=== PATIENT | female | born 1980 | race American Indian/Alaskan Native ===

== ENCOUNTER 2016-07-12 10:31 | Emergency (ER) | payer MEDICAID ==
--- NOTE | 2016-07-12 12:39 | Emergency Department Report ---
ED ENT HPI - General Chief complaint: Sore Throat Stated complaint: SWOLLEN THROAT Time Seen by Provider: 07/12/16 12:24 Source: patient Mode of arrival: Ambulatory Limitations: No Limitations - History of Present Illness MD complaint: sore throat Location: throat Severity: moderate Quality: burning, aching Worsens with: swallowing Associated Symptoms: fever, sore throat - Related Data Previous Rx's Medication Instructions Recorded Last Taken Type Azithromycin [Zithromax] 250 mg PO QDAY #6 tablet 07/12/16 Unknown Rx Prochlorperazine [Compazine] 10 mg PO ONCE #20 tablet 07/12/16 Unknown Rx Allergies Allergy/AdvReac Type Severity Reaction Status Date / Time Latex, Natural Rubber Allergy Hives Verified 07/12/16 10:49 Penicillins Allergy Hives Verified 07/12/16 10:49 ED Dental HPI - General Chief complaint: Sore Throat Stated complaint: SWOLLEN THROAT Time Seen by Provider: 07/12/16 12:24 Source: patient Mode of arrival: Ambulatory Limitations: No Limitations - History of Present Illness MD complaint: sore throat -: Gradual Severity: moderate Worsens with: swallowing - Related Data Previous Rx's Medication Instructions Recorded Last Taken Type Azithromycin [Zithromax] 250 mg PO QDAY #6 tablet 07/12/16 Unknown Rx Prochlorperazine [Compazine] 10 mg PO ONCE #20 tablet 07/12/16 Unknown Rx Allergies Allergy/AdvReac Type Severity Reaction Status Date / Time Latex, Natural Rubber Allergy Hives Verified 07/12/16 10:49 Penicillins Allergy Hives Verified 07/12/16 10:49 ED Review of Systems ROS: Stated complaint: SWOLLEN THROAT Other details as noted in HPI Constitutional: denies: chills, fever Eyes: denies: eye pain, eye discharge, vision change ENT: denies: ear pain, throat pain Respiratory: denies: cough, shortness of breath, wheezing Gastrointestinal: nausea. denies: abdominal pain, vomiting Musculoskeletal: myalgia Skin: denies: rash, lesions Neurological: headache ED Past Medical Hx - Past Medical History Previous Medical History?: No - Surgical History Additional Surgical History: Appendix, scar tissure - Social History Smoking Status: Never Smoker Substance Use Type: None - Medications Home Medications: Home Medications Medication Instructions Recorded Confirmed Last Taken Type Azithromycin [Zithromax] 250 mg PO QDAY #6 tablet 07/12/16 Unknown Rx Prochlorperazine [Compazine] 10 mg PO ONCE #20 tablet 07/12/16 Unknown Rx ED Physical Exam - General Limitations: No Limitations General appearance: alert, in no apparent distress - Head Head exam: Present: atraumatic, normocephalic - Eye Eye exam: Present: normal appearance - ENT ENT exam: Present: other (bilateral exudative tonsillitis) - Neck Neck exam: Present: full ROM, lymphadenopathy. Absent: tenderness, meningismus - Respiratory Respiratory exam: Absent: respiratory distress ED Course Vital Signs 07/12/16 10:49 Temperature 99.3 F Pulse Rate 107 H Respiratory 18 Rate Blood Pressure 162/98 O2 Sat by Pulse 98 Oximetry Critical care attestation.: If time is entered above; I have spent that time in minutes in the direct care of this critically ill patient, excluding procedure time. ED Disposition Clinical Impression: Exudative tonsillitis Disposition: DISCHARGED TO HOME OR SELFCARE Is pt being admited?: No Does the pt Need Aspirin: No Condition: Stable Instructions: Strep Throat (ED) Prescriptions: Azithromycin [Zithromax] 250 mg PO QDAY #6 tablet Prochlorperazine [Compazine] 10 mg PO ONCE #20 tablet Referrals: PRIMARY CARE, [Primary Care Provider] - 3-5 Days Forms: Work/School Release Form(ED)
[2016-07-12 13:43] VITALS: BP 158/86
== END 2016-07-12 13:26 | disposition home or self-care (01) ==
LOC: ED 10:31
DX: J03.90 Acute tonsillitis, unspecified (principal); Z88.0 Allergy status to penicillin; Z91.040 Latex allergy status
CPT/HCPCS: 93005; 93010; 99282

== ENCOUNTER 2016-07-14 10:48 | Emergency (ER) | payer MEDICAID ==
[2016-07-14] MEDS ORDERED: NORCO 5/325 PO ONE (14:16)
[2016-07-14] MEDS ORDERED: NACL 0.9% 1000 ML 1,000 ML IV ONE (14:23)
--- NOTE | 2016-07-14 14:57 | Emergency Department Report ---
ED ENT HPI - General Chief complaint: Sore Throat Stated complaint: ALLERGIC REACTION TO ANTIBIOTICS Time Seen by Provider: 07/14/16 14:04 Source: patient Mode of arrival: Ambulatory Limitations: No Limitations - History of Present Illness Initial comments: Patient presents with throat/neck pain on left side, she states she was here 2 days ago and was given antibiotic which has not helped with pain or swelling. MD complaint: sore throat -: Gradual Location: throat Severity: severe Severity scale (0 -10): 9 Quality: sharp Consistency: constant Improves with: none Worsens with: swallowing, eating Associated Symptoms: pain with swallowing, sore throat - Related Data Previous Rx's Medication Instructions Recorded Last Taken Type Prochlorperazine [Compazine] 10 mg PO ONCE #20 tablet 07/12/16 Unknown Rx Clindamycin [Clindamycin CAP] 300 mg PO Q8H #30 capsule 07/14/16 Unknown Rx HYDROcodone/APAP 5-325 [Marion 1 each PO Q8HR #20 tablet 07/14/16 Unknown Rx 5-325 mg TAB] Allergies Allergy/AdvReac Type Severity Reaction Status Date / Time Latex, Natural Rubber Allergy Hives Verified 07/12/16 10:49 Penicillins Allergy Hives Verified 07/12/16 10:49 ED Dental HPI - General Chief complaint: Sore Throat Stated complaint: ALLERGIC REACTION TO ANTIBIOTICS Time Seen by Provider: 07/14/16 14:04 Source: patient Mode of arrival: Ambulatory Limitations: No Limitations - Related Data Previous Rx's Medication Instructions Recorded Last Taken Type Prochlorperazine [Compazine] 10 mg PO ONCE #20 tablet 07/12/16 Unknown Rx Clindamycin [Clindamycin CAP] 300 mg PO Q8H #30 capsule 07/14/16 Unknown Rx HYDROcodone/APAP 5-325 [Marion 1 each PO Q8HR #20 tablet 07/14/16 Unknown Rx 5-325 mg TAB] Allergies Allergy/AdvReac Type Severity Reaction Status Date / Time Latex, Natural Rubber Allergy Hives Verified 07/12/16 10:49 Penicillins Allergy Hives Verified 07/12/16 10:49 ED Review of Systems ROS: Stated complaint: ALLERGIC REACTION TO ANTIBIOTICS Other details as noted in HPI Constitutional: denies: chills, fever Eyes: denies: eye pain, eye discharge, vision change ENT: throat pain. denies: ear pain Respiratory: denies: cough, shortness of breath, stridor, wheezing Cardiovascular: denies: chest pain, palpitations Gastrointestinal: denies: abdominal pain, nausea, diarrhea Genitourinary: denies: urgency, dysuria, discharge Musculoskeletal: denies: back pain, joint swelling, arthralgia Skin: denies: rash, lesions Neurological: denies: headache, weakness, paresthesias ED Past Medical Hx - Past Medical History Previous Medical History?: No - Surgical History Hx Appendectomy: Yes Additional Surgical History: SCAR TISSUE REMOVED - Social History Smoking Status: Never Smoker Substance Use Type: None - Medications Home Medications: Home Medications Medication Instructions Recorded Confirmed Last Taken Type Prochlorperazine [Compazine] 10 mg PO ONCE #20 tablet 07/12/16 Unknown Rx Clindamycin [Clindamycin CAP] 300 mg PO Q8H #30 capsule 07/14/16 Unknown Rx HYDROcodone/APAP 5-325 [Marion 1 each PO Q8HR #20 tablet 07/14/16 Unknown Rx 5-325 mg TAB] ED Physical Exam - General Limitations: No Limitations General appearance: alert, in no apparent distress, other (No drooling, stidor, is able to swollow saliva) - Head Head exam: Present: atraumatic, normocephalic, normal inspection - Eye Eye exam: Present: normal appearance - ENT ENT exam: Present: mucous membranes moist, TM's normal bilaterally - Expanded ENT Exam Expanded Mouth exam: Present: tongue normal. Absent: drooling, trismus, muffled voice Teeth exam: Present: normal inspection Throat exam: Positive: tonsillar erythema (left greater than right, ulcer present), tonsillomegaly, tonsillar exudate - Neck Neck exam: Present: normal inspection, tenderness (left anterior cervical), full ROM, lymphadenopathy (left anterior cervical) - Respiratory Respiratory exam: Present: normal lung sounds bilaterally. Absent: respiratory distress, wheezes, rales, rhonchi, stridor - Cardiovascular Cardiovascular Exam: Present: regular rate, normal rhythm. Absent: systolic murmur, diastolic murmur, rubs, gallop - GI/Abdominal GI/Abdominal exam: Present: soft, normal bowel sounds - Extremities Exam Extremities exam: Present: normal inspection, full ROM - Back Exam Back exam: Present: normal inspection, full ROM - Neurological Exam Neurological exam: Present: alert, oriented X3 - Psychiatric Psychiatric exam: Present: normal affect, normal mood - Skin Skin exam: Present: warm, dry, intact, normal color. Absent: rash ED Course Vital Signs 07/14/16 10:56 Temperature 98.5 F Pulse Rate 102 H Respiratory 19 Rate Blood Pressure 150/99 O2 Sat by Pulse 100 Oximetry ED Medical Decision Making - Lab Data Result diagrams: 07/14/16 14:47 07/14/16 14:47 - Radiology Data EXAM: CT NECK W CON HISTORY: neck/throat pain TECHNIQUE: Serial axial images through the neck during intravenous administration of 100 milliliters Omni 300 contrast with coronal and sagittal reconstruction PRIORS: None. FINDINGS: No gross abnormality is seen in visualized portion of the brain. Orbits appear normal and symmetric. The paranasal sinuses and mastoid air cells are well aerated. No acute osseous abnormality is identified. Infiltrate is seen in the lateral aspect of the left upper lobe in the region that measures up to 3.6 x 2.5 centimeters in axial dimension. This is incompletely evaluated in this study. The thyroid gland, submandibular glands and parotid glands appear within normal limits. The left palatine tonsil is asymmetrically enlarged. There is a hypodense area within the tonsil that measures up to 18.5 x 18.8 x 15 millimeters. Asymmetrically enlarged lymph nodes are seen in the left side of the neck. IMPRESSION: 1. There is asymmetric enlargement of the left palatine tonsil. Hypodensity within the tonsil may represent phlegmon or early abscess. There is associated reactive adenopathy in the left side of the neck. 2. Infiltrative process is seen in the left upper lobe. This may represent pneumonia, but other etiology is not excluded. There are currently no studies available for direct comparison. - Medical Decision Making Patient presents with strep throat that has not improved with zithromax. CT report shows enlargement of palatine tonsil. Spoke with Dr. Daniels about this patient, he states as long as no stridor, drooling, neck pain, limited rom of neck and pt has ability to swallow, she can be discharged with referal to ENT germaine as there is not an ENT dr occupational analyst. - Differential Diagnosis peritonsillar abscess, strep throat, tonsilitis Critical Care Time: No Critical care attestation.: If time is entered above; I have spent that time in minutes in the direct care of this critically ill patient, excluding procedure time. ED Disposition Clinical Impression: Acute bacterial tonsillitis Disposition: DISCHARGED TO HOME OR SELFCARE Is pt being admited?: No Does the pt Need Aspirin: No Condition: Stable Instructions: Tonsillitis (ED), Peritonsillar Abscess (ED) Additional Instructions: It is strongly advised you follow up with ENT as soon as possible. Return to ED if unable to swallow, drooling, shortness of breath, fever, chills, nausea, vomiting. Prescriptions: Clindamycin [Clindamycin CAP] 300 mg PO Q8H #30 capsule HYDROcodone/APAP 5-325 [Marion 5-325 mg TAB] 1 each PO Q8HR #20 tablet Referrals: PRIMARY CAREMD [Primary Care Provider] - 3-5 Days LETHA CHATMAN MD [Staff Physician] - 3-5 Days Forms: Work/School Release Form(ED) Time of Disposition: 18:28
[2016-07-14 15:02] LABS: Basophils % (Auto) 0.2 % (0.0-1.8); Eosinophils % (Auto) 0.9 % (0.0-4.3); Hemoglobin 11.8 gm/dl (10.1-14.3); Mean Corpuscular HGB Conc 33 % (30-34); Mean Corpuscular Hemoglobin 29 pg (28-32); Mean Corpuscular Volume 88 fl (79-97); Platelet Count 292 K/mm3 (140-440); Red Blood Count 4.12 M/mm3 (3.65-5.03); Red Cell Distribution Width 13.8 % (13.2-15.2); White Blood Count 14.4 K/mm3 (4.5-11.0)
[2016-07-14 15:22] LABS: Alanine Aminotransferase 32 units/L (7-56); Albumin 4.2 g/dL (3.9-5); Alkaline Phosphatase 171 units/L (35-129); Anion Gap 17 mmol/L; BUN/Creatinine Ratio 11.66; Bilirubin,Total 0.9 mg/dL (0.1-1.2); Blood Urea Nitrogen 7 mg/dL (7-17); Calcium 9.4 mg/dL (8.4-10.2); Carbon Dioxide 28 mmol/L (22-30); Chloride 95.9 mmol/L (98-107); Glucose 89 mg/dL (65-100); Potassium 3.3 mmol/L (3.6-5.0); Sodium 138 mmol/L (137-145); Total Protein 8.6 g/dL (6.3-8.2)
[2016-07-14] MEDS ORDERED: NACL ONE (16:03)
--- NOTE | 2016-07-14 17:49 | Cat Scan Report ---
FINAL REPORT EXAM: CT NECK W CON HISTORY: neck/throat pain TECHNIQUE: Serial axial images through the neck during intravenous administration of 100 milliliters Omni 300 contrast with coronal and sagittal reconstruction PRIORS: None. FINDINGS: No gross abnormality is seen in visualized portion of the brain. Orbits appear normal and symmetric. The paranasal sinuses and mastoid air cells are well aerated. No acute osseous abnormality is identified. Infiltrate is seen in the lateral aspect of the left upper lobe in the region that measures up to 3.6 x 2.5 centimeters in axial dimension. This is incompletely evaluated in this study. The thyroid gland, submandibular glands and parotid glands appear within normal limits. The left palatine tonsil is asymmetrically enlarged. There is a hypodense area within the tonsil that measures up to 18.5 x 18.8 x 15 millimeters. Asymmetrically enlarged lymph nodes are seen in the left side of the neck. IMPRESSION: 1. There is asymmetric enlargement of the left palatine tonsil. Hypodensity within the tonsil may represent phlegmon or early abscess. There is associated reactive adenopathy in the left side of the neck. 2. Infiltrative process is seen in the left upper lobe. This may represent pneumonia, but other etiology is not excluded. There are currently no studies available for direct comparison.
[2016-07-14 18:37] VITALS: BP 147/95
--- NOTE | 2016-07-14 20:11 | Emergency Department Report ---
Blank Doc - Documentation Documentation: Charge Nurse reports that patients narcotic prescription was not cosigned by Dr. Daniels and if I would be able to write her something for pain. Reviewed chart and prescribed patient Tramadol. Her Narcotic prescription was collected and shredded.
== END 2016-07-14 18:37 | disposition home or self-care (01) ==
LOC: ED 10:48
DX: J03.80 Acute tonsillitis due to other specified organisms (principal); B96.89 Other specified bacterial agents as the cause of diseases classified elsewhere; Z90.49 Acquired absence of other specified parts of digestive tract; Z79.899 Other long term (current) drug therapy; Z79.2 Long term (current) use of antibiotics; Z98.890 Other specified postprocedural states; Z88.0 Allergy status to penicillin; Z91.040 Latex allergy status
CPT/HCPCS: 36415; 70491; 80053; 84703; 85025; 87430; 96360; 99284; J7030; Q9967

== ENCOUNTER 2016-09-10 06:49 | Day surgery (SDC) | payer OTHER, MEDICAID ==
--- NOTE | 2016-09-10 06:45 | Short Stay Summary ---
Short Stay Documentation Date of service: 09/10/16 Narrative H&P: 35y/o @ 6 weeks ega with evidence of heart tones. Patient denies bleeding or passage of tissue. No precipitating event for the miscarriage. Patient has been reassessed/reevaluated/re-examined. H&P has been reviewed. No interval changes. - History Principal diagnosis: Missed H&P: obtained from office Past Medical History: No medical history Past Surgical History: appendectomy, Other (laparoscopy) Social history: - Allergies and Medications Current Medications: Allergies Latex, Natural Rubber Allergy (Verified 07/12/16 10:49) Hives Penicillins Allergy (Verified 07/12/16 10:49) Hives Home Medications Medication Instructions Recorded Confirmed Last Taken Type Prochlorperazine [Compazine] 10 mg PO ONCE #20 tablet 07/12/16 Unknown Rx Clindamycin [Clindamycin CAP] 300 mg PO Q8H #30 capsule 07/14/16 Unknown Rx traMADol [Ultram 50 MG tab] 50 mg PO Q6HR PRN #14 tablet 07/14/16 Unknown Rx - Physical exam General appearance: no acute distress Integumentary: no rash HEENT: Atraumatic Lungs: Clear to auscultation Breasts: deferred Heart: Regular rate Gastrointestinal: normal Female Genitourinary: deferred Rectal Exam: deferred - Brief post op/procedure progress note Date of procedure: 09/10/16 Pre-op diagnosis: missed Post-op diagnosis: same Procedure: Suction dilatation and curettage Anesthesia: GETA Surgeon: CHASE VALDES Estimated blood loss: 50-100ml Pathology: list (products of conception) Specimen disposition: to lab Condition: stable - Hospital course Hospital course: The patient was admitted the day of surgery and underwent a suction dilatation and curettage for missed . Please see operative note for details of surgery. Postoperative course was uneventful. - Disposition Condition at discharge: Good Disposition: DISCHARGED TO HOME OR SELFCARE Short Stay Discharge Plan Activity: other (pelvic rest for 2 weeks) Diet: regular Additional Instructions: Scheduled follow-up in 2 weeks Prescriptions: Ibuprofen [Motrin] 800 mg PO Q8HR PRN #60 tablet PRN Reason: Pain oxyCODONE /ACETAMINOPHEN [Percocet 5/325] 1 tab PO Q6HR PRN #30 tablet PRN Reason: Pain
[2016-09-10] MEDS ORDERED: DIPRIVAN 10 MG/ML IV ONE (08:34)
[2016-09-10] MEDS ORDERED: SUBLIMAZE ONE (08:34)
[2016-09-10] MEDS ORDERED: XYLOCAINE MPF 2% ONE (08:35)
[2016-09-10] MEDS ORDERED: NACL BACTERIOSTATIC INFILTRATI ONE (08:55)
--- NOTE | 2016-09-10 09:04 | Anesthesia Consultation ---
Anesthesia Consult and Med Hx Date of service: 09/10/16 - Airway Anesthetic Teeth Evaluation: Poor (broken off #8 and #9) ROM Head & Neck: Adequate Mental/Hyoid Distance: Adequate Mallampati Class: Class III Intubation Access Assessment: Possibly Difficult - Pre-Operative Health Status ASA Pre-Surgery Classification: ASA3 Proposed Anesthetic Plan: General - Pulmonary Hx Sleep Apnea: No (Snores loudly) - Other Systems Hx Obesity: Yes (Morbid obesity BMI 47.0) - Additional Comments Anesthesia Medical History Comments: Missed
--- NOTE | 2016-09-10 09:05 | Anesthesia Day of Surgery ---
Anesthesia Day of Surgery - Day of Surgery Patient Examined: Yes Patient H&P Reviewed: Yes Patient is NPO: Yes
[2016-09-10 09:20] LABS: Hematocrit 36.2 % (30.3-42.9); Hemoglobin 11.9 gm/dl (10.1-14.3)
[2016-09-10] MEDS ORDERED: METHERGINE IM ONE ×2 (09:52→10:22)
[2016-09-10] MEDS ORDERED: DECADRON ONE (09:58)
[2016-09-10] MEDS ORDERED: ZOFRAN ONE ×2 (09:58→10:33)
[2016-09-10] MEDS ORDERED: VERSED IV NR (10:00)
[2016-09-10] MEDS ORDERED: LACTATED RINGERS 1,000 ML IV SCH (10:00)
[2016-09-10] MEDS ORDERED: PEPCID IV NR (10:00)
--- NOTE | 2016-09-10 10:18 | Operative Report ---
Operative Report Operative Report: Date of surgery: 09/10/2016 Preoperative diagnosis: Missed Postoperative diagnosis: Same as above Procedure: Suction dilatation and curettage Surgeon: Shyann Miramontes M.D. Anesthesia: Gen. endotracheal anesthesia Estimated blood loss: 100 mL Findings: Products of conception Indication: 35-year-old at 6 weeks estimated gestational age of findings of an embryonic demise. Procedure: The patient was taken to the operating room and given general endotracheal anesthesia without complication. The patient is prepped and draped in a normal sterile fashion. A bivalve speculum was placed in the patient's vagina and a single-tooth tenaculums placed on the anterior lip of the cervix. The uterine cavity was then sounded. The cervical os was then dilated with graduated dilators. A number 8 Uzbek curved cannula was placed to suction and found to be adequate. The cannula was then gently inserted into the dilated cervical os. Evacuation of the uterine contents were performed. Sharp curettage and endometrial surface was performed until cry was achieved. The cannula was then gently reinserted into the uterine cavity to evacuate any additional contents. After removal of the cannula there was no evidence of any active bleeding. The vaginal instruments were then removed atraumatically. The patient was then successfully extubated and taken to the recovery room in stable condition. All sponge laps and needle counts were correct 2. Pathology consisted of products of conception.
[2016-09-10] MEDS ORDERED: SILVER NITRATE TP ONE ×2 (10:23→10:39)
[2016-09-10] MEDS ORDERED: DILAUDID IV PRN (10:28)
[2016-09-10] MEDS ORDERED: ZOFRAN IV PRN (10:39)
--- NOTE | 2016-09-10 10:39 | Post Anesthesia Evaluation ---
- Post Anesthesia Evaluation Patient Participated: Yes Airway Patent: Yes Stable Respiratory Function: Yes Nausea/Vomiting: No Temp > 96.8F: Yes Pain Manageable: Yes Adequeate Hydration: Yes Anesthesia Complications: No Block Receding Appropriately: Not Applicable Patient on Ventilator: No
[2016-09-10 11:22] VITALS: BP 137/76
== END 2016-09-10 11:43 | disposition home or self-care (01) ==
LOC: OR 06:49
PROVIDERS: ATTEND Obstetrics & Gynecology
DX: O02.1 Missed abortion (principal); E66.01 Morbid (severe) obesity due to excess calories; Z68.42 Body mass index [BMI] 45.0-49.9, adult; Z98.890 Other specified postprocedural states
CPT/HCPCS: 36415; 59820; 85014; 85018; 86900; 86901; 88305; J1100; J1170; J2210; J2250; J2405; J2704; J3010; J7120

== ENCOUNTER 2018-06-21 16:41 | Emergency (ER) | payer SELFPAY ==
[2018-06-21 16:54] VITALS: BP 170/100
[2018-06-21 18:36] LABS: HCG Qualitative,Urine Negative (Negative)
[2018-06-21 18:42] LABS: Bacteria,Urine 1+ /HPF (Negative); Bilirubin,Urine NEG (Negative); Blood,Urine NEG (Negative); Color,Urine Yellow (Yellow); Mucus,Urine FEW /HPF; Protein,Urine <15 mg/dL mg/dL (Negative); Urobilinogen,Urine < 2.0 mg/dL (<2.0)
== END 2018-06-21 19:53 | disposition left against medical advice (07) ==
LOC: ED 16:41
DX: J11.1 Influenza due to unidentified influenza virus with other respiratory manifestations (principal); Z53.21 Procedure and treatment not carried out due to patient leaving prior to being seen by health care provider
CPT/HCPCS: 81001; 81025